=== PATIENT | male | born 1970 | race Caucasian/White ===

== ENCOUNTER → 2021-04-27 02:58 | Outpatient (CLI) | payer OTHER, SELFPAY ==
[2021-04-27 20:04] LABS: SARS-CoV-2 RNA PCR Negative
== END ==
PROVIDERS: PCP Family Medicine Adolescent Medicine; Visit Provider Internal Medicine Gastroenterology
DX: Z01.812 Encounter for preprocedural laboratory examination (principal); Z20.822 Contact with and (suspected) exposure to COVID-19
CPT/HCPCS: C9803; U0003; U0005

== ENCOUNTER 2021-04-30 01:31 | Day surgery (SDC) | payer OTHER, SELFPAY ==
[2021-04-14 13:18] VITALS: BMI 40.8
[2021-04-30 10:44] VITALS: BP 129/88; PULSE 78; RESP 16; TEMP 36.2; O2SAT 97
[2021-04-30] MEDS: LACTATED RINGERS 1,000 ML 150 ML IV CONT (10:55)
--- NOTE | 2021-04-30 10:56 | P.PNAN_ITS ---
Anes - Initial Pre Proc Eval Procedure: Operation Date: 04/30/21 11:45 Proposed Procedures p Screening Colonoscopy - Milton Jean MD Date/Time: 04/30/21 10:56 Surgeon: Milton Jean MD Pre Op Diagnosis: neoplasm screening Patient Data Age: 51 Gender: M Height: 1.65 m Weight: 106.9 kg Last Vital Signs Temp 36.2 C L 04/30/21 10:44 Pulse 78 04/30/21 10:44 Resp 16 04/30/21 10:44 BP 129/88 04/30/21 10:44 Pulse Ox 97 04/30/21 10:44 Allergies Allergy/AdvReac Type Severity Reaction Status Date / Time No Known Allergies Allergy Verified 04/30/21 10:42 Home Medications Medication Instructions Recorded Confirmed Type omeprazole 20 mg PO DAILY 04/14/21 04/14/21 History metoprolol succinate 50 mg PO DAILY 04/30/21 04/30/21 History penicillin V potassium 500 mg PO QID 04/30/21 04/30/21 History Patient hx anesthesia problems: none Family hx anesthesia problems: none Results Review: All pre-operative results and documents have been reviewed as part of the pre-operative evaluation. [facility] Past Medical History Medical History (Updated 04/30/21 @ 10:57 by Vinod Khoury MD) GERD (gastroesophageal reflux disease) HTN (hypertension) KLAUDIA (obstructive sleep apnea) Surgical History Surgical History (Updated 04/30/21 @ 11:00 by Vinod Khoury MD) History of foot surgery Social History Social History Substance use type: does not use Living arrangements: with family Anes - Eval Final PreProcedure Day of Procedure 04/30/21 10:56 Patient weight: obese Heart: regular rate and rhythm Lungs: clear to auscultation Airway: Mallampati scale class II Neurological: alert and oriented Last oral intake: >/= 8 hours ASA classification: III Emergent: no Anesthetic plan: proceed Anesthesia type and monitoring: general GIVS and standard monitoring Results Review: All pre-operative results and documents have been reviewed as part of the pre-operative evaluation. Informed Consent: The patient's anesthetic plan and its attendant risks and benefits were discussed with the patient/family/POA. Questions were solicited and answers provided to the satisfaction of the patient/family/POA.
--- NOTE | 2021-04-30 11:00 | P.HP_ITS ---
History of Present Illness History of Present Illness Consent: Risks, benefits, and alternatives have been discussed and questions answered. Patient agrees to proceed with procedure. Chief complaint: neoplasm screening Narrative: Hira Zayas is a 51 year old male here for screening colonoscopy Review of Systems Constitutional: Constitutional: Denies headache(s) and Denies weakness Eyes: Eyes: Denies blurry vision ENT: Reports Normal hearing present, Denies headache(s) and Denies neck pain Cardiovascular: Cardiovascular: Denies chest pain and Denies dyspnea Respiratory: Respiratory: Denies dyspnea Gastrointestinal: Gastrointestinal: Reports no additional gastrointestinal complaints Genitourinary: Genitourinary: Denies dysuria Musculoskeletal: Musculoskeletal: Denies neck pain Integumentary/Breasts: Skin/Breast: Denies dry skin Neurologic: Reports Normal hearing present, Denies headache(s) and Denies weakness Psychiatric: Psychiatric: Denies anxiety Endocrine: Endocrine: Denies change in body appearance Hematologic/Lymphatic: Hematologic/Lymphatic: Denies easy bleeding Allergic/Immunologic: Allergic/Immunologic: Denies urticaria [facility] Past Medical History Medical History (Updated 05/18/21 @ 08:39 by Milton Jean MD) Colon cancer screening GERD (gastroesophageal reflux disease) HTN (hypertension) KLAUDIA (obstructive sleep apnea) Surgical History Surgical History (Updated 04/30/21 @ 11:00 by Vinod Khoury MD) History of foot surgery Social History Social History Substance use type: does not use Living arrangements: with family Meds Home Medications and Allergies Home Medications Medication Instructions Recorded Confirmed Type omeprazole 20 mg PO DAILY 04/14/21 04/14/21 History metoprolol succinate 50 mg PO DAILY 04/30/21 04/30/21 History penicillin V potassium 500 mg PO QID 04/30/21 04/30/21 History Allergies Allergy/AdvReac Type Severity Reaction Status Date / Time No Known Allergies Allergy Verified 04/30/21 10:42 Exam Const: General: comfortable and no acute distress HENMT: General nose exam: Normal nares present Eyes: General: appearance normal, both eyes and all related structures Neck: Neck: no JVD Resp: Auscultation: clear to auscultation bilaterally Cardio: Rate: regular rate Rhythm: regular rhythm GI: Inspection: non-distended GI Palp: Yes Soft to palpation Skin: General skin exam: normal color Neuro: General: gait normal Speech: normal speech Extrem: General: normal to inspection Psych: Mental Status: mental status grossly normal Assessment and Plan Assessment and plan (1) Colon cancer screening: Code(s): Z12.11 - Encounter for screening for malignant neoplasm of colon Status: Acute Assessment and Plan: colonoscopy
[2021-04-30 11:40] VITALS: BP 99/66; PULSE 73; RESP 18; O2SAT 95
[2021-04-30 11:50] VITALS: BP 94/70; PULSE 68; RESP 16; O2SAT 97
[2021-04-30 12:00] VITALS: BP 104/63; PULSE 77; RESP 22; O2SAT 99
== END 2021-04-30 12:20 | disposition home or self-care (01) ==
PROVIDERS: PCP Family Medicine Adolescent Medicine; Visit Provider Internal Medicine Gastroenterology
PROC: 0DJD8ZZ Inspection of Lower Intestinal Tract, Via Natural or Artificial Opening Endoscopic (ICD-10-PCS; CPT 45378; principal; 2021-04-30 11:45)
DX: Z12.11 Encounter for screening for malignant neoplasm of colon (principal); K64.8 Other hemorrhoids; D12.4 Benign neoplasm of descending colon; K21.9 Gastro-esophageal reflux disease without esophagitis; I10 Essential (primary) hypertension; G47.33 Obstructive sleep apnea (adult) (pediatric); E66.9 Obesity, unspecified; Z68.39 Body mass index [BMI] 39.0-39.9, adult
CPT/HCPCS: 45380; 88305; C9803; J2704; J7120; U0003; U0005